=== PATIENT | female | born 1950 | race Caucasian/White ===

== ENCOUNTER 2021-05-31 16:18 | Inpatient (IN) ==
[2021-05-31 17:35] LABS: Basophils % 0.4 % (0.0-0.8); Eosinophils # 0.2 10*3/uL (0.0-0.87); Eosinophils % 1.9 % (0.00-10.9); Hematocrit 34.9 VOL% (35.7-47.0); Hemoglobin 11.7 GM/DL (12.0-16.0); Immature Granulocytes % 0.4 %; Immature Granulocytes Absolute 0.03 #; Lymphocytes # 2.5 10*3/uL (1.4-4.0); Lymphocytes % 31.5 % (21.3-54.2); Mean Corpuscular HGB Conc 33.5 GM/DL (32-36); Mean Corpuscular Volume 99.1 FL (87-102); Mean Platelet Volume 9.8 FL (9.6-12.0); Monocytes % 6.7 % (1.7-12.7); Neutrophils % 59.1 % (38.7-73.9); Platelet Count 202 T/CUMM (130-400); Red Blood Count 3.52 MC/CUMM (3.8-5.5); Red Cell Distribution Width 14.2 % (9.3-17.3); White Blood Count 7.9 T/CUMM (4-12)
[2021-05-31 18:00] LABS: Alanine Aminotransferase 14 U/L (13-56); Albumin 3.3 G/DL (3.4-5.0); Alkaline Phosphatase 63 U/L (45-117); Aspartate Amino Transferase 16 U/L (0-37); Bilirubin,Total < 0.39 MG/DL (0.20-1.00); Blood Urea Nitrogen 14 MG/DL (7-18); Calcium 8.5 MG/DL (8.5-10.1); Carbon Dioxide 28 MMOL/L (21-32); Estimated Glom Filtration Rate 81 ML/MIN; Glucose 97 MG/DL (74-106); Osmolality,Calculated 279.4 MOS/KG (273-304); Potassium 3.7 MMOL/L (3.5-5.1); Sodium 140 MMOL/L (136-145)
[2021-05-31 19:31] LABS: Bilirubin,Urine Negative (Negative); Blood, Urine Negative (Negative); Glucose,Urine (UA) Negative (Negative); Hyaline Casts,Urine 1 /LPF (0-3); Ketones,Urine Negative (Negative); Nitrite,Urine Negative (Negative); Protein,Urine Negative; RBC,Urine 1 /HPF (0-4); Squamous Epithelial Cell,Urine Occasional /HPF (0-10); Urine Appearance CLEAR (Clear); Urine Color Straw (Yellow); Urine Specific Gravity 1.004 (1.001-1.035); Urine Urobilinogen < 2.0 EU/DL (0.2-1.0)
[2021-05-31 19:44] LABS: Barbiturates Screen,Urine Negative (Negative); Benzodiazepines Screen,Urine Negative (Negative); Cannabinoid Screen,Urine Negative (Negative); Opiate Screen,Urine Positive (Negative); Phencyclidine Screen,Urine Negative (Negative)
[2021-05-31 20:30] LABS: PT Patient Result 10.9 SECS (10.5-12.0); Partial Thromboplastin Time 32.2 SECS (23.9-33.8)
[2021-05-31] MEDS ORDERED: ACETAMINOPHEN 325 MG TABLET PO PRN (21:29)
[2021-05-31] MEDS ORDERED: GLUCAGON 1 MG VIAL IM PRN (21:29)
[2021-05-31] MEDS ORDERED: MORPHINE 2 MG/1 ML SYRINGE IV PRN (21:29)
[2021-05-31] MEDS ORDERED: ONDANSETRON 4 MG/2 ML VIAL IV PRN (21:29)
[2021-05-31] MEDS ORDERED: DEXTROSE 50% 25 GM/50 ML VIAL IV PRN (21:29)
[2021-05-31] MEDS ORDERED: NITROGLYCERIN SL 0.4 MG TABLET SL PRN (21:29)
[2021-05-31] MEDS: INSULIN REGULAR 100 UNIT/ML SUBCUT SCH (23:19)
[2021-05-31] MEDS: DOCUSATE SODIUM 100 MG CAPSULE PO SCH (23:19)
[2021-05-31] MEDS: ZALEPLON 5 MG CAPSULE PO PRN (23:19)
[2021-06-01] MEDS: DOCUSATE SODIUM 100 MG CAPSULE PO SCH ×2 (08:26→21:17)
[2021-06-01] MEDS: PANTOPRAZOLE 40 MG TABLET PO SCH (08:26)
[2021-06-01] MEDS: INSULIN REGULAR 100 UNIT/ML SUBCUT SCH ×4 (08:27→21:17)
[2021-06-01] MEDS ORDERED: ALBUTEROL 2.5 MG/3 ML NEB RESP TX PRN (08:34)
[2021-06-01] MEDS: BUMETANIDE 1 MG TABLET PO SCH (09:39)
[2021-06-01] MEDS: ENOXAPARIN 30 MG/0.3 ML SYRINGE SUBCUT SCH (09:40)
[2021-06-01] MEDS: METOPROLOL SUCCINATE XL 25 MG TABLET PO SCH (09:40)
[2021-06-01] MEDS: MEMANTINE 5 MG TABLET PO SCH (09:40)
[2021-06-01] MEDS: FOLIC ACID 1 MG TABLET PO SCH (09:40)
[2021-06-01] MEDS: NICOTINE 21 MG/24 HR PATCH TRANSDERM SCH (09:40)
[2021-06-01] MEDS: FLUTICASONE 50 MCG NASAL SPRAY 16 GM BOTTLE BOTH NARES SCH (09:46)
[2021-06-01 11:29] LABS: Calcium 8.9 MG/DL (8.5-10.1); Osmolality,Calculated 279.3 MOS/KG (273-304); Potassium 3.5 MMOL/L (3.5-5.1)
[2021-06-01] MEDS: ASPIRIN EC 81 MG TABLET PO SCH (12:07)
[2021-06-01] MEDS: Budesonide-Glycopyr-Formoterol [Breztri Aerosphere] 160-9-4.8 mc INH SCH ×2 (12:07→21:17)
[2021-06-01] MEDS: ROSUVASTATIN 20 MG TABLET PO SCH (21:17)
[2021-06-01] MEDS: GABAPENTIN 600 MG TABLET PO SCH (21:18)
[2021-06-01] MEDS: ZALEPLON 5 MG CAPSULE PO PRN (21:27)
[2021-06-02] MEDS ORDERED: REGADENOSON 0.4 MG/5 ML SYRINGE IV ONE (08:51)
[2021-06-02] MEDS: INSULIN REGULAR 100 UNIT/ML SUBCUT SCH ×4 (09:19→20:57)
[2021-06-02] MEDS ORDERED: GLUCAGON 1 MG VIAL IM PRN (11:19)
[2021-06-02] MEDS ORDERED: DEXTROSE 50% 25 GM/50 ML VIAL IV PRN (11:19)
[2021-06-02] MEDS: ASPIRIN EC 81 MG TABLET PO SCH (13:12)
[2021-06-02] MEDS: FOLIC ACID 1 MG TABLET PO SCH (13:13)
[2021-06-02] MEDS: ENOXAPARIN 30 MG/0.3 ML SYRINGE SUBCUT SCH (13:13)
[2021-06-02] MEDS: Budesonide-Glycopyr-Formoterol [Breztri Aerosphere] 160-9-4.8 mc INH SCH ×2 (13:13→20:54)
[2021-06-02] MEDS: BUMETANIDE 1 MG TABLET PO SCH (13:13)
[2021-06-02] MEDS: DOCUSATE SODIUM 100 MG CAPSULE PO SCH ×2 (13:13→20:55)
[2021-06-02] MEDS: NICOTINE 21 MG/24 HR PATCH TRANSDERM SCH (13:14)
[2021-06-02] MEDS: MEMANTINE 5 MG TABLET PO SCH (13:14)
[2021-06-02] MEDS: METOPROLOL SUCCINATE XL 25 MG TABLET PO SCH (13:15)
[2021-06-02] MEDS: PANTOPRAZOLE 40 MG TABLET PO SCH (13:15)
[2021-06-02] MEDS: FLUTICASONE 50 MCG NASAL SPRAY 16 GM BOTTLE BOTH NARES SCH (13:24)
[2021-06-02] MEDS: ROSUVASTATIN 20 MG TABLET PO SCH (20:55)
[2021-06-02] MEDS: GABAPENTIN 600 MG TABLET PO SCH (20:55)
[2021-06-02] MEDS: ZALEPLON 5 MG CAPSULE PO PRN (20:55)
[2021-06-03 05:14] LABS: Basophils % 0.4 % (0.0-0.8); Eosinophils # 0.2 10*3/uL (0.0-0.87); Eosinophils % 2.6 % (0.00-10.9); Hematocrit 37.4 VOL% (35.7-47.0); Hemoglobin 12.5 GM/DL (12.0-16.0); Immature Granulocytes % 0.2 %; Immature Granulocytes Absolute 0.02 #; Lymphocytes # 2.9 10*3/uL (1.4-4.0); Lymphocytes % 34.6 % (21.3-54.2); Mean Corpuscular HGB Conc 33.4 GM/DL (32-36); Mean Platelet Volume 9.5 FL (9.6-12.0); Monocytes % 7.2 % (1.7-12.7); Platelet Count 193 T/CUMM (130-400); Red Blood Count 3.74 MC/CUMM (3.8-5.5); Red Cell Distribution Width 13.8 % (9.3-17.3); White Blood Count 8.5 T/CUMM (4-12)
[2021-06-03 05:41] LABS: Albumin 3.3 G/DL (3.4-5.0); Bilirubin,Total 0.5 MG/DL (0.20-1.00); Calcium 9.2 MG/DL (8.5-10.1); Osmolality,Calculated 283.1 MOS/KG (273-304); Potassium 3.8 MMOL/L (3.5-5.1); Total Protein 6.7 G/DL (6.4-8.2)
[2021-06-03] MEDS ORDERED: FAMOTIDINE 20 MG TABLET PO ONE (06:00)
[2021-06-03] MEDS ORDERED: DIAZEPAM 5 MG TABLET PO ONE (06:00)
[2021-06-03] MEDS ORDERED: ONDANSETRON 4 MG/2 ML VIAL ONE (07:59)
[2021-06-03] MEDS ORDERED: TISSUE ADHESIVE 1 EACH APPLICATOR TOP ONE (07:59)
[2021-06-03] MEDS ORDERED: LIDOCAINE 2% 5 ML VIAL ONE (07:59)
[2021-06-03] MEDS ORDERED: fentaNYL 100 MCG/2 ML VIAL ONE (07:59)
[2021-06-03] MEDS ORDERED: HEPARIN 5,000 UNIT/1 ML VIAL ONE (07:59)
[2021-06-03] MEDS ORDERED: propofoL 200 MG/20 ML VIAL IV ONE ×2 (07:59→09:46)
[2021-06-03] MEDS ORDERED: DEXAMETHASONE 4 MG/1 ML VIAL ONE ×2 (07:59→09:46)
[2021-06-03] MEDS ORDERED: ROCURONIUM 50 MG/5 ML VIAL IV ONE (07:59)
[2021-06-03] MEDS ORDERED: SUCCINYLCHOLINE 200 MG/10 ML VIAL ONE (07:59)
[2021-06-03] MEDS ORDERED: LIDOCAINE 1% 20 ML VIAL ONE (07:59)
[2021-06-03] MEDS ORDERED: LACTATED RINGERS 1,000 ML IV SCH (08:30)
[2021-06-03] MEDS ORDERED: ePHEDrine 50 MG/ML VIAL ONE (08:57)
[2021-06-03] MEDS ORDERED: HEPARIN 10,000 UNIT/10 ML VIAL ONE (09:44)
[2021-06-03] MEDS ORDERED: PROTAMINE SULFATE 50 MG/5 ML VIAL IV ONE (09:44)
[2021-06-03] MEDS ORDERED: GLYCOPYRROLATE 0.4 MG/2 ML VIAL ONE (09:47)
[2021-06-03] MEDS ORDERED: NEOSTIGMINE 10 MG/10 ML VIAL ONE (09:47)
[2021-06-03] MEDS ORDERED: ONDANSETRON 4 MG/2 ML VIAL IV PRN ×2 (09:59→10:38)
[2021-06-03] MEDS ORDERED: GLUCAGON 1 MG VIAL IM PRN (09:59)
[2021-06-03] MEDS ORDERED: PROMETHAZINE 25 MG/1 ML VIAL IM PRN (09:59)
[2021-06-03] MEDS ORDERED: HYDROmorphone 2 MG/1 ML VIAL IV PRN ×2 (09:59)
[2021-06-03] MEDS ORDERED: NALOXONE 0.4 MG/ML VIAL IV PRN (09:59)
[2021-06-03] MEDS ORDERED: oxyCODONE/ACETAMINOPHEN 5-325 MG TABLET PO PRN (09:59)
[2021-06-03] MEDS ORDERED: LABETALOL 20 MG/4 ML SYRINGE IV ONE (09:59)
[2021-06-03] MEDS ORDERED: DEXTROSE 50% 25 GM/50 ML VIAL IV PRN (09:59)
[2021-06-03] MEDS ORDERED: [UNRECOGNIZED DRUG - OTHER] IV SCH (10:15)
[2021-06-03] MEDS ORDERED: SEVOFLURANE 1 UNIT/15 MINUTE INH ONE (10:26)
[2021-06-03] MEDS: HYDROmorphone 2 MG/1 ML VIAL IV PRN ×4 (10:45→11:09)
[2021-06-03] MEDS: PHENYLEPHRINE DRIP 40 MG/250 ML PREMIX IV SCH (11:52)
[2021-06-03] MEDS: LACTATED RINGERS 1,000 ML IV SCH ×3 (11:52→23:06)
[2021-06-03] MEDS: INSULIN REGULAR 100 UNIT/ML SUBCUT SCH ×3 (12:28→20:23)
[2021-06-03] MEDS: MEMANTINE 5 MG TABLET PO SCH (14:19)
[2021-06-03] MEDS: PANTOPRAZOLE 40 MG TABLET PO SCH (14:19)
[2021-06-03] MEDS: DOCUSATE SODIUM 100 MG CAPSULE PO SCH ×2 (14:19→20:22)
[2021-06-03] MEDS: FOLIC ACID 1 MG TABLET PO SCH (14:19)
[2021-06-03] MEDS: BUMETANIDE 1 MG TABLET PO SCH (14:19)
[2021-06-03] MEDS: ASPIRIN EC 81 MG TABLET PO SCH (14:20)
[2021-06-03] MEDS: FLUTICASONE 50 MCG NASAL SPRAY 16 GM BOTTLE BOTH NARES SCH (14:21)
[2021-06-03] MEDS: NICOTINE 21 MG/24 HR PATCH TRANSDERM SCH (14:36)
[2021-06-03] MEDS: Budesonide-Glycopyr-Formoterol [Breztri Aerosphere] 160-9-4.8 mc INH SCH ×2 (14:37→21:06)
[2021-06-03] MEDS: ENOXAPARIN 30 MG/0.3 ML SYRINGE SUBCUT SCH (14:45)
[2021-06-03] MEDS: NITROPRUSSIDE 100 MG in DEXTROSE 5% 250 ML IV SCH (14:45)
[2021-06-03] MEDS: METOPROLOL SUCCINATE XL 25 MG TABLET PO SCH (18:06)
[2021-06-03] MEDS: ROSUVASTATIN 20 MG TABLET PO SCH (20:22)
[2021-06-03] MEDS: GABAPENTIN 600 MG TABLET PO SCH (20:22)
[2021-06-03] MEDS: oxyCODONE/ACETAMINOPHEN 5-325 MG TABLET PO PRN (20:23)
[2021-06-03] MEDS: ZALEPLON 5 MG CAPSULE PO PRN (21:40)
[2021-06-04 04:26] LABS: Alanine Aminotransferase 15 U/L (13-56); Albumin 2.7 G/DL (3.4-5.0); Alkaline Phosphatase 43 U/L (45-117); Aspartate Amino Transferase 14 U/L (0-37); Basophils % 0.1 % (0.0-0.8); Bilirubin,Total < 0.39 MG/DL (0.20-1.00); Blood Urea Nitrogen 10 MG/DL (7-18); Calcium 7.8 MG/DL (8.5-10.1); Carbon Dioxide 30 MMOL/L (21-32); Eosinophils % 0.5 % (0.00-10.9); Estimated Glom Filtration Rate 98 ML/MIN; Glucose 87 MG/DL (74-106); Hematocrit 31.8 VOL% (35.7-47.0); Hemoglobin 10.4 GM/DL (12.0-16.0); Immature Granulocytes % 0.2 %; Immature Granulocytes Absolute 0.02 #; Lymphocytes # 1.9 10*3/uL (1.4-4.0); Lymphocytes % 23.5 % (21.3-54.2); Mean Corpuscular HGB Conc 32.7 GM/DL (32-36); Mean Corpuscular Volume 101.9 FL (87-102); Mean Platelet Volume 9.4 FL (9.6-12.0); Monocytes % 6.7 % (1.7-12.7); Osmolality,Calculated 285.7 MOS/KG (273-304); Platelet Count 174 T/CUMM (130-400); Potassium 3.5 MMOL/L (3.5-5.1); Red Blood Count 3.12 MC/CUMM (3.8-5.5); Red Cell Distribution Width 13.7 % (9.3-17.3); Sodium 145 MMOL/L (136-145); Total Protein 5.3 G/DL (6.4-8.2); White Blood Count 8.2 T/CUMM (4-12)
[2021-06-04] MEDS: LACTATED RINGERS 1,000 ML IV SCH (06:14)
[2021-06-04] MEDS: oxyCODONE/ACETAMINOPHEN 5-325 MG TABLET PO PRN (06:39)
[2021-06-04] MEDS: INSULIN REGULAR 100 UNIT/ML SUBCUT SCH ×2 (07:50→13:23)
[2021-06-04] MEDS: PANTOPRAZOLE 40 MG TABLET PO SCH (08:18)
[2021-06-04] MEDS: BUMETANIDE 1 MG TABLET PO SCH (08:18)
[2021-06-04] MEDS: ASPIRIN EC 81 MG TABLET PO SCH (08:19)
[2021-06-04] MEDS: METOPROLOL SUCCINATE XL 25 MG TABLET PO SCH (08:19)
[2021-06-04] MEDS: DOCUSATE SODIUM 100 MG CAPSULE PO SCH (08:19)
[2021-06-04] MEDS: MEMANTINE 5 MG TABLET PO SCH (08:19)
[2021-06-04] MEDS: FOLIC ACID 1 MG TABLET PO SCH (08:19)
[2021-06-04] MEDS: FLUTICASONE 50 MCG NASAL SPRAY 16 GM BOTTLE BOTH NARES SCH (08:21)
[2021-06-04] MEDS: NICOTINE 21 MG/24 HR PATCH TRANSDERM SCH (08:21)
[2021-06-04] MEDS: Budesonide-Glycopyr-Formoterol [Breztri Aerosphere] 160-9-4.8 mc INH SCH (08:45)
[2021-06-04] MEDS ORDERED: ENOXAPARIN 40 MG/0.4 ML SYRINGE SUBCUT SCH (09:00)
[2021-06-04] MEDS ORDERED: CLOPIDOGREL 75 MG TABLET PO SCH (09:00)
[2021-06-04] MEDS: NITROPRUSSIDE 100 MG in DEXTROSE 5% 250 ML IV SCH (10:38)
[2021-06-04] MEDS: PHENYLEPHRINE DRIP 40 MG/250 ML PREMIX IV SCH (10:39)
[2021-06-04 11:12] VITALS: BP 115/55
== END 2021-06-04 14:43 | disposition home health service (06) | DRG 39 ==
LOC: EDUNIT# → EDBD → N.ED 16:18 → N.EDINP 16:18 → N.TELEN 21:20 → N.ICU 06-03 10:49 → N.3E 06-04 11:00
PROVIDERS: ADMIT Family Medicine; ATTEND Family Medicine

== ENCOUNTER 2022-06-13 10:20 | Observation (INO) ==
[2022-06-13] MEDS ORDERED: ENOXAPARIN 100 MG/ML SYRINGE SUBCUT STA (10:40)
[2022-06-13] MEDS ORDERED: ONDANSETRON 4 MG/2 ML VIAL IV STA (10:40)
[2022-06-13] MEDS ORDERED: ALUM/MAG/SIMETH/LIDO VISC 1:1 30 ML BOTTLE PO STA (10:40)
[2022-06-13] MEDS ORDERED: ASPIRIN 325 MG TABLET PO STA (10:40)
[2022-06-13 10:58] LABS: Albumin 3.6 G/DL (3.4-5.0); Bilirubin,Total 0.4 MG/DL (0.20-1.00); Calcium 9.2 MG/DL (8.5-10.1); Osmolality,Calculated 282.4 MOS/KG (273-304); Total Protein 6.8 G/DL (6.4-8.2)
[2022-06-13 11:30] LABS: Basophils % 0.2 % (0.0-0.8); Eosinophils # 0.2 10*3/uL (0.0-0.87); Eosinophils % 1.5 % (0.00-10.9); Hematocrit 38.7 VOL% (35.7-47.0); Hemoglobin 12.9 GM/DL (12.0-16.0); Immature Granulocytes % 0.6 %; Immature Granulocytes Absolute 0.07 #; Lymphocytes # 2.7 10*3/uL (1.4-4.0); Lymphocytes % 23.9 % (21.3-54.2); Mean Corpuscular HGB Conc 33.3 GM/DL (32-36); Mean Corpuscular Volume 99.5 FL (87-102); Mean Platelet Volume 9.4 FL (9.6-12.0); Monocytes # 0.8 10*3/uL (0.11-0.8); Monocytes % 7.3 % (1.7-12.7); Neutrophils % 66.5 % (38.7-73.9); Platelet Count 329 T/CUMM (130-400); Red Blood Count 3.89 MC/CUMM (3.8-5.5); Red Cell Distribution Width 14.5 % (9.3-17.3); White Blood Count 11.1 T/CUMM (4-12)
[2022-06-13 11:38] LABS: PT Patient Result 10.7 SECS (10.1-12.1); Partial Thromboplastin Time 30.1 SECS (23.7-32.9)
[2022-06-13 12:11] LABS: Bilirubin,Urine Negative (Negative); Blood, Urine Negative (Negative); Glucose,Urine (UA) 250 mg/dL (Negative); Ketones,Urine Negative (Negative); Mucus,Urine Occasional /LPF (Occasional); Nitrite,Urine Negative (Negative); Protein,Urine Negative (Negative); RBC,Urine 1 /HPF (0-4); Squamous Epithelial Cell,Urine Occasional /HPF (0-10); Urine Appearance Clear (Clear); Urine Color Yellow (Yellow); Urine Specific Gravity 1.015 (1.001-1.035); Urine Urobilinogen 0.2 eU/dL (<2.0); Urine pH 5.5 (4.5-8.0)
[2022-06-13] MEDS ORDERED: ALUMINUM/MAGNES/SIMETH MAX STR 30 ML UDCUP PO PRN (12:52)
[2022-06-13] MEDS ORDERED: BISACODYL 5 MG TABLET PO PRN (12:52)
[2022-06-13] MEDS ORDERED: SIMETHICONE CHEW 125 MG TABLET PO PRN (12:52)
[2022-06-13] MEDS ORDERED: ONDANSETRON 4 MG/2 ML VIAL IV PRN (12:52)
[2022-06-13] MEDS ORDERED: ACETAMINOPHEN 325 MG TABLET PO PRN (12:52)
[2022-06-13] MEDS ORDERED: ZALEPLON 5 MG CAPSULE PO PRN (12:52)
[2022-06-13] MEDS ORDERED: LACTULOSE 20 GM/30 ML UDCUP PO PRN (12:52)
[2022-06-13] MEDS ORDERED: CALCIUM CARBONATE CHEW 500 MG TABLET PO PRN (12:52)
[2022-06-13] MEDS ORDERED: NON-FORMULARY MEDICATION (Albuterol Sulfate [Proair Hfa] 90 MCG/PUFF HFA aerosol inhaler) INH PRN (13:21)
[2022-06-13] MEDS ORDERED: ALBUTEROL/IPRATROPIUM 3 ML NEB RESP TX PRN (13:21)
[2022-06-13] MEDS ORDERED: GLUCAGON 1 MG VIAL IM PRN (13:35)
[2022-06-13] MEDS ORDERED: INFLUENZA VIRUS VACCINE 0.5 ML SYRINGE IM ONE (15:14)
[2022-06-13] MEDS: INSULIN LISPRO 100 UNIT/ML SUBCUT SCH ×2 (15:58→20:40)
[2022-06-13] MEDS: Budesonide-Glycopyr-Formoterol [Breztri Aerosphere] 160-9-4.8 mc INH SCH (20:40)
[2022-06-13] MEDS: GABAPENTIN 300 MG CAPSULE PO SCH ×2 (20:40→20:44)
[2022-06-13] MEDS ORDERED: ROSUVASTATIN 20 MG TABLET PO SCH (21:00)
[2022-06-14 05:16] LABS: Basophils % 0.4 % (0.0-0.8); Eosinophils # 0.3 10*3/uL (0.0-0.87); Eosinophils % 3.5 % (0.00-10.9); Hematocrit 37.4 VOL% (35.7-47.0); Hemoglobin 12.5 GM/DL (12.0-16.0); Immature Granulocytes % 0.4 %; Immature Granulocytes Absolute 0.03 #; Lymphocytes # 1.8 10*3/uL (1.4-4.0); Lymphocytes % 25.3 % (21.3-54.2); Mean Corpuscular HGB Conc 33.4 GM/DL (32-36); Mean Corpuscular Volume 100.5 FL (87-102); Mean Platelet Volume 9.3 FL (9.6-12.0); Monocytes # 0.6 10*3/uL (0.11-0.8); Monocytes % 8.9 % (1.7-12.7); Neutrophils % 61.5 % (38.7-73.9); Platelet Count 292 T/CUMM (130-400); Red Blood Count 3.72 MC/CUMM (3.8-5.5); Red Cell Distribution Width 14.4 % (9.3-17.3); White Blood Count 7.2 T/CUMM (4-12)
[2022-06-14 05:31] LABS: Calcium 9.3 MG/DL (8.5-10.1); Osmolality,Calculated 283.3 MOS/KG (273-304); Potassium 4.2 MMOL/L (3.5-5.1); Risk Ratio 2.71; VLDL Cholesterol 48.2 MG/DL
[2022-06-14 08:44] VITALS: BP 133/70
[2022-06-14] MEDS ORDERED: METOPROLOL SUCCINATE XL 25 MG TABLET PO SCH (09:00)
[2022-06-14] MEDS ORDERED: UPADACITINIB 15 MG PO SCH (09:00)
[2022-06-14] MEDS ORDERED: DAPAGLIFLOZIN 10 MG TABLET PO SCH (09:00)
[2022-06-14] MEDS ORDERED: ZINC GLUCONATE 50 MG TABLET PO SCH (09:00)
[2022-06-14] MEDS ORDERED: MULTIVITAMIN (PRENATAL) TABLET PO SCH (09:00)
[2022-06-14] MEDS ORDERED: LORATADINE 10 MG TABLET PO SCH (09:00)
[2022-06-14] MEDS ORDERED: FOLIC ACID 1 MG TABLET PO SCH (09:00)
[2022-06-14] MEDS ORDERED: PANTOPRAZOLE 40 MG TABLET PO SCH (09:00)
[2022-06-14] MEDS ORDERED: ASCORBIC ACID 500 MG TABLET PO SCH (09:00)
[2022-06-14] MEDS ORDERED: ASPIRIN EC 81 MG TABLET PO SCH (09:00)
[2022-06-14] MEDS ORDERED: PARoxetine 20 MG TABLET PO SCH (09:00)
[2022-06-14] MEDS ORDERED: MEGESTROL 400 MG/10 ML UDCUP PO SCH (09:00)
[2022-06-14] MEDS ORDERED: BUMETANIDE 1 MG TABLET PO SCH (09:00)
[2022-06-14] MEDS ORDERED: FLUTICASONE 50 MCG NASAL SPRAY 16 GM BOTTLE BOTH NARES SCH (09:00)
[2022-06-14] MEDS: INSULIN LISPRO 100 UNIT/ML SUBCUT SCH (10:13)
[2022-06-14] MEDS: Budesonide-Glycopyr-Formoterol [Breztri Aerosphere] 160-9-4.8 mc INH SCH (10:19)
[2022-06-14] MEDS ORDERED: ENOXAPARIN 40 MG/0.4 ML SYRINGE SUBCUT SCH (11:00)
[2022-06-17] MEDS ORDERED: CYANOCOBALAMIN 1000 MCG/1 ML VIAL IM SCH (09:00)
[2022-06-19] MEDS ORDERED: METHOTREXATE SODIUM 25 MG/ML IM SCH (13:21)
== END 2022-06-14 11:50 | disposition home or self-care (01) ==
LOC: N.ED 10:20 → N.EDINP 10:20 → N.2W 14:48
PROVIDERS: ADMIT Internal Medicine Interventional Cardiology; ATTEND Internal Medicine Interventional Cardiology